=== PATIENT | male | born 1960 | race Hispanic/Latino ===

== ENCOUNTER → 2019-11-02 | Day surgery (SDC) | payer OTHER ==
[~2019-11-02] MED LIST: ATORVASTATIN CA10 MG PO; ATORVASTATIN CA40 MG PO; CHLORTHALIDONE25 MG PO; LIDOCAINE HCL 2% LOCAL INJ 5 ML SDV VIAL INJ ONE; NEXIUM; PRINIVIL20 MG PO; PROPOFOL IV EMULSION 10 MG/ML 20 ML VIAL ONE
[2019-11-02 12:35] VITALS: BP 143/88
--- NOTE | 2019-11-02 13:10 | Operative Report ---
DATE OF PROCEDURE: 11/02/2019 SURGEON: Maikol Walls MD PROCEDURE: EGD with biopsies and a colonoscopy with polypectomy. INDICATIONS FOR EGD: Dyspepsia. INDICATIONS FOR COLONOSCOPY: Surveillance colonoscopy, personal history of colon polyps. MEDICATIONS: The patient was done under MAC. Please see anesthesiologist's note. PROCEDURE IN DETAIL: With the patient in left lateral decubitus position, a flexible fiberoptic Olympus gastroscope was introduced into the esophagus under direct visualization without any difficulty. There was some patchy erythema noted in distal esophagus. Some focal nodularity was noted at the GE junction that was biopsied. The scope was then advanced with ease into the stomach traversing a small sliding hiatal hernia. Mucosa overlying the antrum and the body revealed some patchy intense erythema low-grade to moderate edema, and biopsies were obtained sent to stain for H pylori. Pylorus was of normal contour and shape, was intubated with ease and the scope was advanced all the way to the second portion of the duodenum. Mucosa overlying the proximal second portion appeared to be within normal limits. A minute ulcer was noted in the duodenal bulb without active bleeding or stigmata of recent hemorrhage. The scope was then withdrawn back into the stomach and retroflexed, mucosa overlying the fundus and cardia appeared to be within normal limits. The scope was then straightened out. It was subsequently withdrawn. The patient tolerated the procedure well. IMPRESSION: 1. Distal esophagitis, mild. 2. Focal nodularity, gastroesophageal junction, biopsied. 3. Small sliding hiatal hernia. 4. Gastritis, biopsied. Biopsies sent to stain for Helicobacter pylori. 5. Duodenal ulcer, minute, bulb, without active bleeding or stigmata of recent hemorrhage. PLAN: Follow up histology. Initiate Protonix 40 mg one p.o. q.a.m. a.c. The patient was then turned around after adequate lubrication of the anal canal. A flexible fiberoptic Olympus colonoscope was inserted into the rectum with ease and advanced all the way to the cecum. Overall, the prep was suboptimal, but visualization was fair. An approximately 8 mm sessile polyp was removed per hot snare polypectomy from the cecum. The scope was then withdrawn slowly and there were some minimal diverticulosis noted in the ascending colon. One polyp was hot snared from the proximal transverse colon. The rest of the transverse grossly appeared to be within normal limits. The descending and the sigmoid likewise with some minimal diverticulosis noted and mucosa overlying the rectum appeared to be within normal limits. The scope was then retroflexed into the distal rectum and small internal hemorrhoids were noted, none of which was actively bleeding. The scope was then straightened out. It was subsequently withdrawn. The patient tolerated the procedure well. IMPRESSION: 1. Suboptimal prep. 2. Cecal polyp, hot snared. 3. Diverticulosis. 4. Transverse colon polyp, hot snared. 5. Internal hemorrhoids, none actively bleeding. PLAN: Followup histology. Initiate high-fiber, low-fat diet. Initiate high-fiber supplement. Due to suboptimal prep, the patient might benefit from a followup colonoscopy in 1 to 2 years. Maikol Walls MD [facility] [place] [place] /[id number] cc: Liu Beatty MD
== END | disposition home or self-care (01) ==
LOC: OR 08:48
PROVIDERS: ATTEND Internal Medicine Gastroenterology
DX: K29.50 Unspecified chronic gastritis without bleeding (principal); D12.3 Benign neoplasm of transverse colon; D12.0 Benign neoplasm of cecum; K21.0 Gastro-esophageal reflux disease with esophagitis; K22.70 Barrett's esophagus without dysplasia; K26.9 Duodenal ulcer, unspecified as acute or chronic, without hemorrhage or perforation; K44.9 Diaphragmatic hernia without obstruction or gangrene; K57.30 Diverticulosis of large intestine without perforation or abscess without bleeding; K64.8 Other hemorrhoids; I10 Essential (primary) hypertension; E78.00 Pure hypercholesterolemia, unspecified; Z01.810 Encounter for preprocedural cardiovascular examination; Z01.812 Encounter for preprocedural laboratory examination; Z11.59 Encounter for screening for other viral diseases; Z68.27 Body mass index [BMI] 27.0-27.9, adult
CPT/HCPCS: 43239; 45385; 93005; J2001; J2704; U0002; 45378